=== PATIENT | female | born 1960 | race Caucasian/White ===

== ENCOUNTER 2021-08-31 13:23 | Emergency (ER) | payer SELFPAY ==
[~2021-08-31] VITALS: Ht 157.5 cm; Wt 60.1 kg
[~2021-08-31 13:23] MED LIST: ASPI-1265 PO; HYDR-4383 PO; NO HOME MEDS
[2021-08-31 13:25] VITALS: BP 137/82
--- NOTE | 2021-08-31 13:39 | NUR ---
PROVIDER AT BEDSIDE
[2021-08-31] MEDS ORDERED: HYDR-3965 PO ×2 (13:53→14:45)
== END 2021-08-31 14:20 | disposition home or self-care (01) ==
LOC: ER 13:24
DX: S42.291G Other displaced fracture of upper end of right humerus, subsequent encounter for fracture with delayed healing (principal); W18.39XD Other fall on same level, subsequent encounter; Z79.899 Other long term (current) drug therapy; Z90.49 Acquired absence of other specified parts of digestive tract; Z87.81 Personal history of (healed) traumatic fracture
CPT/HCPCS: 73060; 99283

== ENCOUNTER 2023-10-15 14:39 | Emergency (ER) | payer BC ==
[~2023-10-15] VITALS: Ht 160 cm; Wt 61.4 kg
[2023-10-15 14:57] VITALS: TEMP 97.8
[2023-10-15 17:38] LABS: BASOPHILS % (AUTO) 0.2 % (0-1); EOSINOPHILS # (AUTO) 0.1 X10'3 (0-0.9); EOSINOPHILS % (AUTO) 1.2 % (0-6); HEMATOCRIT 39.6 % (35.0-45.0); HEMOGLOBIN 13.3 g/dl (12.0-16.0); LYMPHOCYTES # (AUTO) 2.6 X10'3 (1.1-4.8); LYMPHOCYTES % (AUTO) 28.1 % (21-51); MEAN CORPUSCULAR HEMOGLOBIN 32.9 PG (27.0-31.0); MEAN CORPUSCULAR HGB CONC 33.6 g/dL (33.0-36.5); MEAN CORPUSCULAR VOLUME 98.2 FL (78-98); MEAN PLATELET VOLUME 8.2 FL (7.4-10.4); MONOCYTES # (AUTO) 0.7 X10'3 (0-0.9); MONOCYTES % (AUTO) 7.5 % (2-12); NEUTROPHILS # (AUTO) 5.8 X10'3 (1.8-7.7); PLATELET COUNT 333 X10'3 (140-440); RED BLOOD COUNT 4.04 X10'6 (4.20-5.60); RED CELL DISTRIBUTION WIDTH 13.6 % (11.5-14.5); WHITE BLOOD COUNT 9.2 X10'3 (4.5-11.0)
[2023-10-15 17:54] LABS: ALANINE AMINOTRANSFERASE 28 U/L (12-78); ALBUMIN 4.3 G/DL (3.4-5.0); ALBUMIN/GLOBULIN RATIO 1.1 (1.1-1.5); ALKALINE PHOSPHATASE 93 IU/L (46-116); ANION GAP 6 (8-16); ASPARTATE AMINO TRANSFERASE 17 U/L (10-37); BILIRUBIN,TOTAL 0.4 MG/DL (0.1-1.0); BLOOD UREA NITROGEN 20 MG/DL (7-18); BUN/CREATININE RATIO 22.2 (10.0-20.0); CALCIUM 9.5 MG/DL (8.5-10.1); CHLORIDE 103 MMOL/L (99-107); GLUCOSE 96 MG/DL (70-104); LIPASE 100 U/L (16-77); POTASSIUM 4.3 MMOL/L (3.5-5.1); SODIUM 139 MMOL/L (135-145); TOTAL CARBON DIOXIDE 29.7 MMOL/L (24-32); TOTAL PROTEIN 8.2 G/DL (6.4-8.2); eCRCL 53 ML/MIN; eGFR 63 ML/MIN
[2023-10-15 23:36] LABS: BILIRUBIN,URINE NEGATIVE (Neg); CLARITY,URINE CLEAR (Clear); COLOR,URINE YELLOW (Yellow); GLUCOSE, URINE NEGATIVE (Neg); KETONES,URINE 15 mg/dl (Neg); LEUKOCYTE ESTERASE ,URINE NEGATIVE (Neg); NITRITES, URINE NEGATIVE (Neg); OCCULT BLOOD,URINE NEGATIVE (Neg); PROTEIN,URINE NEGATIVE (Neg); URINE HCG NEGATIVE (NEG); UROBILINOGEN,URINE 0.2 E.U/dL (0.2-1.0)
[2023-10-15 23:40] LABS: UA COLLECTION TYPE CLN CATCH MIDSTREAM
[2023-10-16] MEDS ORDERED: AMOX-115 PO (00:52)
[2023-10-16] MEDS ORDERED: ONDA8TAB13 PO (00:52)
[2023-10-16] MEDS ORDERED: HYDR-3965 PO (00:52)
[2023-10-16] MEDS: normal saline 1000ML IV soln IVB ONE (01:17)
[2023-10-16] MEDS: ondansetron/PF 4mg/2ml inj IV ONE (01:18)
[2023-10-16] MEDS: morphine 4 MG/ML inj SYRINge IV ONE (01:23)
[2023-10-16] MEDS: piperacillin/tazo 3.375gm/50ml 50 ML IV ONE (01:25)
[2023-10-16 03:08] VITALS: O2SAT 98
[2023-10-16 04:21] VITALS: BP 118/65; PULSE 59; RESP 16
== END 2023-10-16 04:07 | disposition home or self-care (01) ==
LOC: ER 14:39
DX: K57.92 Diverticulitis of intestine, part unspecified, without perforation or abscess without bleeding (principal); Z98.890 Other specified postprocedural states; Z72.89 Other problems related to lifestyle; Z90.710 Acquired absence of both cervix and uterus; Z90.49 Acquired absence of other specified parts of digestive tract
CPT/HCPCS: 36415; 80053; 81003; 81025; 83690; 85025; 96365; 96375; 99285; J2270; J2405; J2543; J7030